=== PATIENT | male | born 1965 | race Two or more races ===

== ENCOUNTER 2024-11-23 07:47 | Observation (INO) | payer OTHER ==
[2024-11-23] MEDS: SODIUM PHOSPHATE/NA BIPHOS 133 ML ENEMA PR ONE ×3 (08:31→09:00)
[2024-11-23] MEDS ORDERED: GLYCERIN 1 RECTAL SUPPOSITORY, ADULT PR ONE (08:58)
[2024-11-23] MEDS ORDERED: GLYCERIN 1 RECTAL SUPPOSITORY, PEDIATRIC RC ONE (10:13)
[2024-11-23] MEDS: GLYCERIN 1 RECTAL SUPPOSITORY, ADULT PR ONE (10:23)
[2024-11-23] MEDS: MAGNESIUM CITRATE 300 ML BOTTLE PO ONE (10:57)
[2024-11-23] MEDS ORDERED: MAGNESIUM CITRATE 300 ML BOTTLE ONE (10:57)
[2024-11-23] MEDS ORDERED: ACETAMINOPHEN INJECTION 100 ML ONE (14:37)
[2024-11-23] MEDS ORDERED: PIPERACILLIN/TAZOB 3.375 GM 3.375 GM/50 ML BAG IVPB ONE (14:37)
[2024-11-23] MEDS: SODIUM CHLORIDE 0.9% 500 ML INFUS.BAG IV ONE (14:46)
[2024-11-23] MEDS: PIPERACILLIN/TAZOB 3.375 GM 3.375 GM in DEXTROSE 5%-WATER - 50 ML IVPB ONE (14:47)
[2024-11-23] MEDS: ACETAMINOPHEN 1000 MG/100 ML BAG IVPB ONE (14:47)
[2024-11-23 14:49] LABS: HEMATOCRIT 41.4 % (35.4-49); HEMOGLOBIN 14.3 GM/dL (11.7-16.9); MCH 30.8 pg (25.7-33.7); MCHC 34.7 g/dl (32.0-35.9); MEAN CELL VOLUME 88.9 fl (80-96); MEAN PLT VOLUME 7.4 fl (7.5-11.1); PLATELET COUNT 337 10^3/uL (134-434); RBC 4.65 M/mm3 (4.00-5.60); RDW 13.1 % (11.9-15.9); WHITE BLOOD COUNT 21.4 K/mm3 (4.0-10.0)
[2024-11-23 15:11] LABS: ALBUMIN 3.6 g/dl (3.4-5.0); BLOOD UREA NITROGEN 14.6 mg/dL (7-18); CALCIUM 9.4 mg/dL (8.5-10.1)
[2024-11-23 15:15] LABS: CREATININE 0.9 mg/dL (0.55-1.3)
[2024-11-23 15:16] LABS: BILIRUBIN,TOTAL 0.6 mg/dL (0.2-1); TOT PROT 8.1 g/dl (6.4-8.2)
[2024-11-23 15:55] LABS: ANISOCYTOSIS 0; MACROCYTOSIS 0
[2024-11-23] MEDS ORDERED: ACETAMINOPHEN 500 MG TABLET (FP) PO PRN (16:11)
[2024-11-23 17:30] VITALS: BMI 23.1
[2024-11-23] MEDS: PIPERACILLIN/TAZOB 4.5 GM 4.5 GM/100 ML BAG IVPB SCH (18:40)
[2024-11-23] MEDS ORDERED: PIPERACILLIN/TAZOB 4.5 GM 4.5 GM in DEXTROSE 5%-WATER 100 ML IVPB SCH (21:00)
[2024-11-23] MEDS: ONDANSETRON 4 MG/2 ML VIAL IVPUSH ONE (22:22)
[2024-11-24] MEDS: LATANOPROST 0.005% OPHTH SOLN 2.5ML BOTTLE OU SCH (02:20)
[2024-11-24] MEDS: ACETAMINOPHEN 1000 MG/100 ML BAG IVPB PRN (03:19)
[2024-11-24 09:19] LABS: HEMATOCRIT 40.6 % (35.4-49); HEMOGLOBIN 13.6 GM/dL (11.7-16.9); MCH 30.1 pg (25.7-33.7); MCHC 33.4 g/dl (32.0-35.9); MEAN CELL VOLUME 90.3 fl (80-96); MEAN PLT VOLUME 7.9 fl (7.5-11.1); PLATELET COUNT 327 10^3/uL (134-434); RDW 13.3 % (11.9-15.9); WHITE BLOOD COUNT 22.6 K/mm3 (4.0-10.0)
[2024-11-24 09:40] LABS: POTASSIUM 3.3 mmol/L (3.5-5.1)
[2024-11-24 09:49] LABS: BLOOD UREA NITROGEN 14.3 mg/dL (7-18)
[2024-11-24 09:52] LABS: CREATININE 0.9 mg/dL (0.55-1.3)
[2024-11-24] MEDS: POLYETHYLENE GLYCOL (HEALTHYLAX) 3350 17 GM PACKET PO SCH (10:14)
[2024-11-24 10:44] LABS: ANISOCYTOSIS 0; MACROCYTOSIS 0
[2024-11-24] MEDS: KCL 10 MEQ IVPB 10 MEQ/100 ML INFUS.BAG IVPB SCH (11:03)
[2024-11-24] MEDS: ONDANSETRON 4 MG/2 ML VIAL IVPUSH PRN (13:50)
[2024-11-24] MEDS: POTASSIUM CHLORIDE ORAL LIQUID 20 MEQ/15 ML PO ONE (16:02)
[2024-11-25 08:49] LABS: HEMATOCRIT 39.1 % (35.4-49); HEMOGLOBIN 13.3 GM/dL (11.7-16.9); MCH 30.3 pg (25.7-33.7); MCHC 34.1 g/dl (32.0-35.9); MEAN CELL VOLUME 88.9 fl (80-96); MEAN PLT VOLUME 7.5 fl (7.5-11.1); PLATELET COUNT 312 10^3/uL (134-434); RDW 13.3 % (11.9-15.9); WHITE BLOOD COUNT 17.6 K/mm3 (4.0-10.0)
[2024-11-25 09:10] LABS: POTASSIUM 3.2 mmol/L (3.5-5.1)
[2024-11-25 09:12] LABS: CALCIUM 8.7 mg/dL (8.5-10.1)
[2024-11-25 09:13] LABS: MAGNESIUM 2.3 mg/dL (1.8-2.4)
[2024-11-25 09:16] LABS: CREATININE 0.9 mg/dL (0.55-1.3); PHOSPHOROUS 2.8 mg/dL (2.5-4.9)
[2024-11-25] MEDS: PIPERACILLIN/TAZOB 4.5 GM 4.5 GM/100 ML BAG IVPB ONE (09:59)
[2024-11-25] MEDS ORDERED: PIPERACILLIN/TAZOB 4.5 GM 4.5 GM/100 ML BAG IVPB SCH (10:00)
[2024-11-25] MEDS: POTASSIUM CHLORIDE ORAL LIQUID 20 MEQ/15 ML PO SCH (11:12)
[2024-11-25] MEDS: PIPERACILLIN/TAZOB 4.5 GM 4.5 GM in DEXTROSE 5%-WATER 100 ML IVPB SCH (17:28)
[2024-11-25] MEDS ORDERED: KETOROLAC TROMETHAMINE 15 MG/ML VIAL IVPUSH PRN (18:32)
[2024-11-25] MEDS: ACETAMINOPHEN 325 MG TABLET (FP) PO PRN (18:40)
[2024-11-26 08:42] LABS: HEMATOCRIT 41.9 % (35.4-49); HEMOGLOBIN 13.8 GM/dL (11.7-16.9); MCHC 32.8 g/dl (32.0-35.9); MEAN CELL VOLUME 91.3 fl (80-96); MEAN PLT VOLUME 7.4 fl (7.5-11.1); PLATELET COUNT 346 10^3/uL (134-434); RBC 4.59 M/mm3 (4.00-5.60); RDW 12.9 % (11.9-15.9); WHITE BLOOD COUNT 15.3 K/mm3 (4.0-10.0)
[2024-11-26 09:05] LABS: POTASSIUM 3.7 mmol/L (3.5-5.1)
[2024-11-26 09:12] LABS: CALCIUM 8.7 mg/dL (8.5-10.1)
[2024-11-26 09:13] LABS: BLOOD UREA NITROGEN 12.5 mg/dL (7-18)
[2024-11-26 09:18] LABS: BILIRUBIN,TOTAL 0.6 mg/dL (0.2-1); TOT PROT 6.9 g/dl (6.4-8.2)
[2024-11-26 09:44] LABS: ALBUMIN 2.9 g/dl (3.4-5.0)
[2024-11-26] MEDS: ENOXAPARIN NA (PORCINE) 40 MG/0.4 ML DISP.SYRIN SQ SCH (09:51)
[2024-11-27] MEDS: PIPERACILLIN/TAZOB 4.5 GM 4.5 GM/100 ML BAG IVPB SCH (01:35)
[2024-11-27 09:04] LABS: HEMATOCRIT 42.7 % (35.4-49); HEMOGLOBIN 14.1 GM/dL (11.7-16.9); MCH 30.1 pg (25.7-33.7); MCHC 33.1 g/dl (32.0-35.9); MEAN CELL VOLUME 91.1 fl (80-96); MEAN PLT VOLUME 7.3 fl (7.5-11.1); PLATELET COUNT 373 10^3/uL (134-434); RBC 4.69 M/mm3 (4.00-5.60); WHITE BLOOD COUNT 13.1 K/mm3 (4.0-10.0)
[2024-11-27 09:10] LABS: POTASSIUM 3.6 mmol/L (3.5-5.1)
[2024-11-27 09:13] LABS: CALCIUM 8.9 mg/dL (8.5-10.1)
[2024-11-27 09:17] LABS: BLOOD UREA NITROGEN 15.4 mg/dL (7-18)
[2024-11-27 09:18] LABS: CREATININE 1.1 mg/dL (0.55-1.3)
[2024-11-27] MEDS: amLODIPine BESYLATE 5 MG TABLET (FP) PO SCH (10:31)
[2024-11-28 06:09] VITALS: RESP 18
[2024-11-28 09:36] LABS: HEMATOCRIT 41.2 % (35.4-49); HEMOGLOBIN 13.4 GM/dL (11.7-16.9); MCH 29.9 pg (25.7-33.7); MCHC 32.5 g/dl (32.0-35.9); MEAN PLT VOLUME 7.3 fl (7.5-11.1); PLATELET COUNT 366 10^3/uL (134-434); RBC 4.48 M/mm3 (4.00-5.60); RDW 13.3 % (11.9-15.9); WHITE BLOOD COUNT 12.1 K/mm3 (4.0-10.0)
[2024-11-28] MEDS: POLYETHYLENE GLYCOL (HEALTHYLAX) 3350 17 GM PACKET PO SCH (13:03)
[2024-11-28 16:06] VITALS: BP 137/76; PULSE 89; TEMP 98.2
== END 2024-11-28 16:25 | disposition home or self-care (01) ==
LOC: JER 07:47 → UNDOADMOB 15:17 → INTOOBSV 15:17 → JERBED 15:17 → J5S 16:36
PROVIDERS: ADMIT Internal Medicine
PROC: 3E033NZ Introduction of Analgesics, Hypnotics, Sedatives into Peripheral Vein, Percutaneous Approach (ICD-10-PCS; principal; 2024-11-23)
PROC: 3E023GC Introduction of Other Therapeutic Substance into Muscle, Percutaneous Approach (ICD-10-PCS; 2024-11-23)
PROC: 3E033GC Introduction of Other Therapeutic Substance into Peripheral Vein, Percutaneous Approach (ICD-10-PCS; 2024-11-23)
PROC: 3E03329 Introduction of Other Anti-infective into Peripheral Vein, Percutaneous Approach (ICD-10-PCS; 2024-11-23)
PROC: 3E0337Z Introduction of Electrolytic and Water Balance Substance into Peripheral Vein, Percutaneous Approach (ICD-10-PCS; 2024-11-23)
DX: K63.0 Abscess of intestine (principal); K59.00 Constipation, unspecified; D72.829 Elevated white blood cell count, unspecified; F17.200 Nicotine dependence, unspecified, uncomplicated
CPT/HCPCS: 36415; 74176-TC; 80048; 80053; 83735; 84100; 85025; 85027; 93005; 93010; 99285-25; G0378; J0131